=== PATIENT | female | born 1990 | race Caucasian/White ===

== ENCOUNTER 2017-02-04 06:00 | Inpatient (IN) | payer OTHER ==
[2017-02-04] MEDS ORDERED: EPSOM SALT 454 GM TP PRN (06:29)
[2017-02-04] MEDS ORDERED: TERBUTALINE SULFATE 1 MG/ML VIAL IV PRN (06:29)
[2017-02-04] MEDS ORDERED: OLIVE OIL 118 ML BTL MISC PRN (06:29)
[2017-02-04] MEDS ORDERED: OXYTOCIN/RINGERS LACTATE 1,000 ML IV PRN (06:29)
[2017-02-04] MEDS ORDERED: LR 1,000 ML IV PRN (06:29)
[2017-02-04 06:58] LABS: % IMMATURE GRANULYOCYTES 0.4 % (0.0-1.1); ABSOLUTE IMMATURE GRANULOCYTES 0.05 10^3/uL (0.00-0.10); ADD DIFF? NO; ADD MORPH? NO; ADD SCAN? NO; ATYPICAL LYMPHOCYTE FLAG 0 (0-99); FRAGMENT RBC FLAG 0 (0-99); HEMOGLOBIN 13.2 g/dL (12.6-16.3); LEFT SHIFT FLG 0 (0-99); LIPEMIA HEMOLYSIS FLAG 90 (0-99); MEAN CELL HEMOGLOBIN 32.7 pg (27.9-34.1); MEAN CELL HEMOGLOBIN CONCENTR. 34.7 g/dL (32.4-36.7); MEAN CELL VOLUME 94.1 fL (81.5-99.8); MEAN PLATELET VOLUME 10.9 fL (8.7-11.7); PLATELET CLUMPS FLAG 0 (0-99); PLATELET COUNT 168 10^3/uL (150-400); RED BLOOD CELL COUNT 4.04 10^6/uL (4.18-5.33)
[2017-02-04] MEDS ORDERED: LR 500 ML IV PRN (07:05)
[2017-02-04] MEDS ORDERED: OXYTOCIN/RINGERS LACTATE 500 ML IV SCH (07:30)
--- NOTE | 2017-02-04 09:55 | GHP ---
[f rep st] HISTORY AND PHYSICAL DATE OF ADMISSION: 02/04/2017 REASON FOR ADMISSION: The patient here for induction on 02/05/2016, on the Obstetric Service. HISTORY: Upon admission the patient is a 26-year-old, G1, P0, at 39 weeks and 2 days, with an estimated due date of 02/09/2017, established by last menstrual period of May 05, with first-trimester ultrasounds consistent with dates. The patient is here for an elective induction, due to decreased movement and term gestation. The patient had decreased movement on February 03, and was evaluated at [facility]. She had a biophysical profile of 8/8, with normal fluid and an NST that was reactive. However, there was 1 late deceleration. The patient had a Aranda catheter placed in anticipation of induction and her cervix was 1-2 cm. The patient presents this morning for induction with Pitocin. The Aranda catheter caused cramping on the night prior to admission. However, this decreased and the patient was able to sleep. The patient's bag of water is intact and the patient did have bloody show after the insertion of the Aranda and slight amount of bloody show this morning. The patient has had better movement than yesterday. She is not having any contractions this morning. care with [facility] since early 1st trimester. The patient had an unplanned and found she was with an IUD in place. The IUD was removed on July 05, at which time the patient was also given a RhoGAM for precautions. The patient found that she had conceived on the day her mother actually with ovarian cancer. The patient's was colored by mourning for her mother's and she has seen our therapist at [facility]. Ultrasound at 19 weeks revealed estimated weight in the 21st percentile. The patient had a followup ultrasound in 3rd trimester, at which time the estimated weight was the 61st percentile with normal fluid. The patient had an elevated 1-hour Glucola and a 3-hour GTT was normal. The patient had, had anemia and been on iron. LABORATORIES: The patient's blood type is B negative with negative antibody screen, noted prior to RhoGAM injections. The patient had RhoGAM on July 05, after the IUD was removed and also proactively on November 17, 2016. RPR is nonreactive. Rubella immune. Hepatitis B surface antigen is negative. Initial hematocrit was 38%, which decreased to 36% and the patient was taking iron therapy. On recheck it had dropped to 35% and the patient was continuing on iron. TSH in the was 2.4. The patient is immune to varicella and has negative hepatitis C. Urinalysis and culture negative. Pap smear negative gonorrhea and chlamydia negative. The 1-hour Glucola was elevated, with a 3- hour GTT that was normal. MSAFP was done and was this was negative. The patient had Innatal screening and this was negative. GBS culture was negative. 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 The patient also was felt to have abnormal thyroid testing at age 12, but the current check was normal. The patient had depression at age 10, when brother was diagnosed with a brain tumor. But this was found to be benign and the patient did not need medication. PAST SURGICAL HISTORY: Odontectomy in 2012. ALLERGIES: The patient has no known drug allergies. CURRENT MEDICATIONS: Only vitamins and iron. SOCIAL HISTORY: The patient is lives with her [place]. The patient is a nonsmoker, no alcohol or drug use. The patient works as an software quality engineer. PHYSICAL EXAMINATION: GENERAL: Upon admission, the patient is a well developed , obese white female, in no physical distress, but anxious. VITAL SIGNS: The patient has normal vital signs and is afebrile. See nursing documentation for full details. The patient's weight is 226 pounds. heart tone monitoring revealed a category 2 tracing with good variability and accelerations but variable decelerations noted randomly. Quick recovery. Contractions only infrequent on the continuous monitoring. PELVIC EXAM: Performed, Aranda catheter is removed. Cervix was 3-4 cm dilated, 80% effaced, at -2 station. Bag of todd intact. EXTREMITIES: Are nontender. Mild edema noted. ASSESSMENT: Intrauterine at 39 weeks and 2 days, with elective induction. Aranda catheter removed and good cervical ripening. Now on Pitocin for induction. We will plan artificial rupture of membranes in a had a couple hours if not spontaneous beforehand. The patient will have an epidural when desired. Social history of mother's demise in May 2016, from ovarian cancer. Rh negative. Full GBS negative. PLAN: We will increase Pitocin and perform AROM when necessary. /[id number]/MODL MTDD
--- NOTE | 2017-02-04 14:12 | OBPROG ---
OBG Labor Progress Note Assessment/Plan: Assessment: IUP at 39w2d, induction on pit Plan: AROM clear GBS - cont pitocin 02/04/17 14:07 Subjective: Pt doing fine. really not uncomfortable. Objective: 02/04/17 06:40 Patient ABO/Rh B NEGATIVE 02/04/17 06:40 - SVE Dilation (cm): 3 Effacement (%): 90 Station: -2 Hernandez Current Contraction Pattern: Irregular FHR (bpm): 140 FHR Pattern Variability: Moderate FHR Category: 1 Membranes: AROM Amniotic Fluid Color: Clear - Procedures Non-surgical Procedures: Amniotomy Oxytocin Orders Assessment - Pre-Induction/Augmentation Assessment Gestational Age: 39 week(s) and 2 day(s) ICD10 Worksheet Patient Problems: Problems Problem Status Onset Elective induction of labor planned Acute
[2017-02-04] MEDS ORDERED: AMMONIA AROMATIC 1 EACH AMP IH ONE (16:16)
[2017-02-04] MEDS ORDERED: OLIVE OIL 118 ML BTL ONE (16:16)
[2017-02-04] MEDS ORDERED: LIDOCAINE 1% 300 MG/30 ML SDV ONE (16:16)
[2017-02-04] MEDS ORDERED: TERBUTALINE SULFATE 1 MG/ML VIAL ONE (16:17)
[2017-02-04] MEDS ORDERED: MISOPROSTOL 200 MCG TAB ONE (16:18)
[2017-02-04] MEDS ORDERED: fentaNYL 2MCG/ML/BUP 0.1% RTU 100 ML BAG EP ONE (17:11)
[2017-02-04] MEDS ORDERED: PHENYLEPHRINE HCL 100 MCG/ML SYR ONE (17:11)
[2017-02-04] MEDS ORDERED: BUPIVACAINE 0.25% 30 ML SDV ONE (17:11)
[2017-02-04] MEDS ORDERED: fentaNYL 100 MCG/2 ML INJ ONE (17:12)
--- NOTE | 2017-02-04 18:24 | PREANESOB ---
Obstetric Pre-Anesthesia Info - General Info Proposed Procedure: Labor and delivery with pitocin. : 1 Para: 0 WBD: 39 - Info Status: Full Term Monitors: External FHR Baseline (bpm): 140 FHR Pattern: Reassuring - Labor Status Cervical Dilation per last OB SVE: 4 Station per last OB SVE: -2 Pitocin: In Use Indications for Labor Analgesia: Induction of Labor, Pain Control Labor Epidural: Proposed Anesthesia ROS: Prior general anesthesia. Allergies/Adverse Reactions: Allergy/AdvReac Type Severity Reaction Status Date / Time hydromorphone [From Dilaudid] Allergy Vomiting Verified 02/04/17 16:36 Home Medications: Medication Instructions Recorded Iron 1 tab PO DAILY 02/04/17 1 tab PO DAILY 02/04/17 Visit Medications: Generic Name Dose Route Start Last Admin Trade Name Freq PRN Reason Stop Dose Admin Lactated Ringer's 1,000 mls @ 0 mls/hr 02/04/17 06:29 Lr IV 08/03/17 06:28 PRN PRN SEE PROTOCOL CONDITIONS Protocol Per Protocol Oxytocin/Lactated Ringer's 1,000 mls @ 150 mls/hr 02/04/17 06:29 Pitocin 20 Units/Lr (Premix) IV PRN PRN Post- bleeding Lactated Ringer's 500 mls @ 500 mls/hr 02/04/17 07:05 Lr IV PRN PRN Maternal Hypotension Oxytocin/Lactated Ringer's 500 mls @ 0 mls/hr 02/04/17 07:30 02/04/17 08:00 Pitocin 30 Units/Lr (Premix) IV 08/03/17 07:29 1 mls CONT WINSOME Administration Protocol Per Protocol Ibuprofen 600 mg 02/04/17 06:29 Motrin PO 08/03/17 06:28 Q6HRS PRN post , inflammation Magnesium Sulfate 454 gm 02/04/17 06:29 Epsom Salt TP 08/03/17 06:28 Q1H PRN perineal discomfort Highland Oil 118 ml 02/04/17 06:29 Sweet Oil MISC 08/03/17 06:28 ONCE PRN preneal massage Terbutaline Sulfate 0.25 mg 02/04/17 06:29 Brethine IV 08/03/17 06:28 ONCE PRN Tachysystole Discontinued Medications Generic Name Dose Route Start Last Admin Trade Name Freq PRN Reason Stop Dose Admin Ammonia (Aromatic Spirit) Confirm 02/04/17 16:16 Ammonia Aromatic Administered 02/04/17 16:17 Dose 1 each IH .STK-MED ONE Bupivacaine HCl Confirm 02/04/17 17:11 Sensorcaine 0.25% Sdv Administered 02/04/17 17:12 Dose 30 ml .ROUTE .STK-MED ONE Fentanyl Confirm 02/04/17 17:12 Sublimaze Administered 02/04/17 17:13 Dose 100 mcg .ROUTE .STK-MED ONE Fentanyl/Bupivacaine HCl Confirm 02/04/17 17:11 Fentanyl/Bupivacaine/Ns 2 Mcg/Ml 0.1% (Premix Administered 02/04/17 17:12 Dose 100 ml EP .STK-MED ONE Lidocaine HCl Confirm 02/04/17 16:16 Lidocaine Hcl 1% Administered 02/04/17 16:17 Dose 300 mg .ROUTE .STK-MED ONE Misoprostol Confirm 02/04/17 16:18 Cytotec Administered 02/04/17 16:19 Dose 1,000 mcg .ROUTE .STK-MED ONE Highland Oil Confirm 02/04/17 16:16 Sweet Oil Administered 02/04/17 16:17 Dose 118 ml .ROUTE .STK-MED ONE Phenylephrine HCl Confirm 02/04/17 17:11 Neosynephrine Administered 02/04/17 17:12 Dose 1,000 mcg .ROUTE .STK-MED ONE Terbutaline Sulfate Confirm 02/04/17 16:17 Brethine Administered 02/04/17 16:18 Dose 1 mg .ROUTE .STK-MED ONE - Anesthesia History Response to Local Anesthetics: Normal Anesthesia & Operative History: No Prior Problems Family Anesthesia History: Negative - Social History Substance Use/Abuse: Denies - Focused Exam Blood Pressure: 138/84 Heart Rate: 72 Height/Weight (Nursing): Height 167.64 cm Weight 97.069 kg Physical Exam: Within normal limits. ASA Status: II Labs: 02/04/17 06:40 Patient ABO/Rh B NEGATIVE 02/04/17 06:40 - Plan Anesthetic Plan: CSE Consent Signed and on Chart: Yes Patient/Guardian Understands and Agrees to Plan: Yes Urgent/Emergent Case: Trinidad lara completed preop but documented later for safe timely pt care
[2017-02-04] MEDS ORDERED: PHENYLEPHRINE HCL 100 MCG/ML SYR IVP PRN (18:28)
[2017-02-04] MEDS ORDERED: ONDANSETRON 4 MG/2 ML VIAL IVP PRN (18:28)
--- NOTE | 2017-02-04 18:28 | POSTANESTH ---
Post Anesthetic Evaluation Cardiovascular Status: Normal, Stable Respiratory Status: Normal, Stable, Similar to Pre-op Cond. Level of Consciousness/Mental Status: Can Participate in Eval, Alert and Oriented Pain Control: Adequate, Prn Tx Ordered Nausea/Vomiting Control: Adequate, Prn Tx Ordered Complications Possibly Related to Anesthesia: None Noted
[2017-02-04] MEDS ORDERED: fentaNYL 2MCG/ML/BUP 0.1% RTU 100 ML EP SCH (18:30)
[2017-02-04] MEDS ORDERED: LR 500 ML IV SCH (18:30)
--- NOTE | 2017-02-04 18:33 | OBPROG ---
OBG Labor Progress Note Assessment/Plan: Assessment: IUP at 39w2d, induction on pit little change - now with TEREZA, IUPC placed Plan: AROM clear - 1400 GBS - cont pitocin 02/04/17 14:07 02/04/17 18:30 Subjective: Pt doing well now, very comf with TEREZA. ok with IUPC Objective: 02/04/17 06:40 Patient ABO/Rh B NEGATIVE 02/04/17 06:40 Temp Pulse Resp BP Pulse Ox 72 138/84 H 02/04/17 18:27 02/04/17 18:27 - SVE Dilation (cm): 4 Effacement (%): 90 Station: 0 Hernandez Current Contraction Pattern: Regular (q 3 min on 24 mu/min pit) FHR (bpm): 140 FHR Pattern Variability: Moderate FHR Category: 2 (variable decels occas) Membranes: AROM Amniotic Fluid Color: Clear - Procedures Non-surgical Procedures: Amniotomy, IUPC (IUPC placed now without probs) Oxytocin Orders Assessment - Pre-Induction/Augmentation Assessment Gestational Age: 39 week(s) and 2 day(s) ICD10 Worksheet Patient Problems: Problems Problem Status Onset Elective induction of labor planned Acute
[2017-02-04] MEDS ORDERED: RANITIDINE HCL 150 MG/10 ML UDCUP PO SCH (22:15)
--- NOTE | 2017-02-04 22:16 | OBPROG ---
OBG Labor Progress Note Assessment/Plan: Assessment: IUP at 39w2d, induction on pit IUPC - borderline adequacy Plan: AROM clear - 1400 GBS - cont pitocin 02/04/17 14:07 02/04/17 18:30 02/04/17 22:13 Subjective: doing fine with TEREZA - just felt some low pressure and pushed button Objective: 02/04/17 06:40 Patient ABO/Rh B NEGATIVE 02/04/17 06:40 Temp Pulse Resp BP Pulse Ox 72 138/84 H 02/04/17 18:27 02/04/17 18:27 - SVE Dilation (cm): 5 Effacement (%): 90 Station: 0 Hernandez Current Contraction Pattern: Regular (q 3 min on 28 mu/min pit) FHR (bpm): 130 FHR Pattern Variability: Moderate FHR Category: 1 Membranes: AROM Amniotic Fluid Color: Clear - Procedures Non-surgical Procedures: Amniotomy, IUPC (IUPC placed now without probs) Oxytocin Orders Assessment - Pre-Induction/Augmentation Assessment Gestational Age: 39 week(s) and 2 day(s) ICD10 Worksheet Patient Problems: Problems Problem Status Onset Elective induction of labor planned Acute
[2017-02-04] MEDS: FAMOTIDINE 20 MG TAB PO SCH (22:46)
[2017-02-05] MEDS ORDERED: ACETAMINOPHEN 325 MG TAB PO PRN (01:49)
--- NOTE | 2017-02-05 01:54 | OBDEL ---
Info Type: Vaginal GBS+: No Indications for Delivery: Elective Vaginal Delivery - Labor and Delivery Onset of Contractions Date: 02/04/17 Onset of Contractions Time: 14:00 Onset of Contractions Type: Induced Rupture of Membranes Date: 02/04/17 Rupture of Membranes Time: 14:00 Rupture of Membranes Type: Artificial Amniotic Fluid Color: Clear Dilation Complete Date: 02/05/17 Dilation Complete Time: 00:20 Placenta Delivery Date: 02/05/17 Placenta Delivery Time: 01:22 Total Hours of Labor: 11 Non-surgical Procedures: Amniotomy, IUPC (IUPC placed now without probs) Laceration: 1st Degree (right labial) Repair: Other (Specify) (none needed) Vaginal Sponge Count Correct: Yes Vaginal Needle Count Correct: Yes Vaginal Sweep Performed: Yes EBL: 400 Delivery Events: Nuchal Cord (x3 loose and reduced, long cord) - Medications Labor Augmentation/Induction Methods Used: Pitocin, Aranda Bulb Labor Augmentation/Induction Indication: Elective Data Hernandez Delivery Date: 02/05/17 Delivery Time: 01:13 BALJIT: 02/09/17 Gestational Age: 39 week(s) and 3 day(s) Sex of Infant: Female (Angeli Miles) Score (1 Min): 8 Score (5 Min): 9 ICD10 Worksheet Patient Problems: Problems Problem Status Onset (spontaneous vaginal delivery) Acute
--- NOTE | 2017-02-05 02:01 | OBGCSDC ---
General Delivery Information - General Info : 1 Para: 1 Delivery Physician/CNM: Alicia Robles Admission Date: 02/04/17 Labs: Patient ABO/Rh B NEGATIVE 02/04/17 06:40 Hct 38.0 % (38.0-47.0) 02/04/17 06:40 Vaginal - Diagnosis Labor: Induced Presentation at Delivery: Vertex Rupture of Membranes Type: Artificial Amniotic Fluid Color: Clear Laceration: 1st Degree (right labial) Repair: Other (Specify) (none needed) Delivery Events: Nuchal Cord (x3 loose and reduced, long cord) - Operations/Procedures Non-surgical Procedures: Amniotomy, IUPC (IUPC placed now without probs) L&D Analgesia/Anesthesia Type: Epidural - Hospital Course Antepartum: conceived with IUD and had +upt on day mom of ovarian cancer. EFW 21 % on 20wk u/s, follow-up at 30 wks showed 61% EFW decreased FM on day prior to induction - u/s with BPP of /8 Intrapartum: jade placed for induction, pitocin and AROM, TEREZA then IUPC placed due to little cx change. complete at 00:20 - 45 min pushing - Delivery Type: Vaginal Non-surgical Procedures: Amniotomy, IUPC (IUPC placed now without probs) EBL: 400 Data Hernandez Delivery Date: 02/05/17 Delivery Time: 01:13 BALJIT: 02/09/17 Gestational Age: 39 week(s) and 3 day(s) Sex of Infant: Female (Angeli Miles) Score (1 Min): 8 Score (5 Min): 9 Discharge Information - Discharge Information Discharge Medications: Vitamins Instruction/Follow Up: Four Weeks (with therapist), Six Weeks (with Travis)
[2017-02-05] MEDS: IBUPROFEN 600 MG TAB PO PRN ×4 (03:15→22:43)
[2017-02-05] MEDS: FAMOTIDINE 20 MG TAB PO SCH ×3 (09:29→22:43)
--- NOTE | 2017-02-05 10:11 | OBPP ---
Progress Note Assessment/Plan: Assessment: nipples intact denies pain or tenderness to nipples well pain well managed voiding without difficulty ff@u scant rubra lochia Plan:expectant management pp day 1 02/05/17 10:09 Subjective: Doing well denies difficulties Objective: 02/04/17 06:40 Patient ABO/Rh B NEGATIVE 02/05/17 02:45 Temp Pulse Resp BP Pulse Ox 36.3 C 58 L 16 112/63 95 02/05/17 08:00 02/05/17 08:00 02/05/17 08:00 02/05/17 08:00 02/05/17 08:00 Uterine Position/Fundal Height: At Umbilicus Uterine Tone: Firm Physical Exam - Physical Exam General Appearance: WD/WN, alert, no apparent distress Abdomen: other (ff@u) Extremities: normal range of motion, Kathryn's sign (negative bilaterally) DTR- Lower Extremities: Knee (R): 1+, Knee (L): 1+ Skin: normal color, warm/dry Neuro/Psych: no motor/sensory deficits, alert, normal mood/affect, oriented x 3
[2017-02-05] MEDS: DOCUSATE SODIUM 100 MG CAP PO PRN (22:43)
[2017-02-06] MEDS: IBUPROFEN 600 MG TAB PO PRN ×4 (04:28→22:14)
--- NOTE | 2017-02-06 09:54 | OBPP ---
Progress Note Assessment/Plan: Assessment: 1) s/p PPD # 1 - pt is stable 2) Rh negative - RhoGam eval Plan: Continue routine pp care Plan for d/c home in am 02/0702/06/17 09:52 02/06/17 09:53 Subjective: Pt seen and examined. Doing well with no complaints. Minimal cramping. Moderate lochia. Pt is OOB, britton regular diet, voiding without difficulty and passing flatus. No BM yet. BF without difficulty. Objective: 02/04/17 06:40 Patient ABO/Rh B NEGATIVE 02/05/17 02:45 Temp Pulse Resp BP Pulse Ox 36.6 C 62 16 86/52 L 97 02/06/17 08:00 02/06/17 08:00 02/06/17 08:00 02/06/17 08:00 02/06/17 08:00 Uterine Position/Fundal Height: Umbilicus -2 Uterine Tone: Firm Physical Exam - Physical Exam General Appearance: WD/WN, alert, no apparent distress Respiratory: lungs clear, normal breath sounds Cardiac/Chest: regular rate, rhythm Abdomen: normal bowel sounds, non-tender, soft, flatus (+) Extremities: non-tender, normal inspection Skin: normal color, warm/dry Neuro/Psych: alert, normal mood/affect, oriented x 3
[2017-02-06] MEDS: FAMOTIDINE 20 MG TAB PO SCH ×2 (10:09→20:26)
[2017-02-06] MEDS: DOCUSATE SODIUM 100 MG CAP PO PRN (20:26)
[2017-02-07] MEDS: IBUPROFEN 600 MG TAB PO PRN (05:23)
[2017-02-07] MEDS: FAMOTIDINE 20 MG TAB PO SCH (09:11)
[2017-02-07 10:00] VITALS: BP 132/82; PULSE 68; RESP 18; TEMP 98.2; O2SAT 97
--- NOTE | 2017-02-07 10:57 | OBPP ---
Progress Note Assessment/Plan: Assessment: nipples intact denies pain or tenderness to nipples well pain well managed voiding without difficulty ff@u scant rubra lochia perineum well approximated Plan:discharge to home with instructions fu 3 d for bp check, 4 weeks and 6 weeks fu pp, pain well managed, depression, ss infection, bleeding pattern, pelvic rest, rest, contraception, walking for 5-6 weeks 02/05/17 10:09 02/07/17 10:54 Subjective: Doing well denies difficulties. Pain well managed. well. Objective: 02/04/17 06:40 Patient ABO/Rh B NEGATIVE 02/05/17 02:45 Temp Pulse Resp BP Pulse Ox 36.8 C 68 18 132/82 H 97 02/07/17 10:00 02/07/17 10:00 02/07/17 10:00 02/07/17 10:00 02/07/17 10:00 Uterine Position/Fundal Height: At Umbilicus Uterine Tone: Firm Physical Exam - Physical Exam General Appearance: WD/WN, alert, no apparent distress Abdomen: other (ff@u/ scant rubra lochia ) Extremities: normal range of motion, Kathryn's sign (negative bilaterally) DTR- Lower Extremities: Knee (R): 1+, Knee (L): 1+ (no clonus) Skin: normal color, warm/dry Neuro/Psych: no motor/sensory deficits, alert, normal mood/affect, oriented x 3
--- NOTE | 2017-02-07 11:00 | OBGCSDC ---
General Delivery Information - General Info : 1 Para: 2 Delivery Physician/CNM: Nena Gross Labs: Patient ABO/Rh B NEGATIVE 02/05/17 02:45 Hct 38.0 % (38.0-47.0) 02/04/17 06:40 Vaginal - Diagnosis Labor: Induced Presentation at Delivery: Vertex Rupture of Membranes Type: Artificial Amniotic Fluid Color: Clear Laceration: 1st Degree (right labial) Repair: Other (Specify) (none needed) Delivery Events: Nuchal Cord (x3 loose and reduced, long cord) - Operations/Procedures Non-surgical Procedures: Amniotomy, IUPC (IUPC placed now without probs) L&D Analgesia/Anesthesia Type: Epidural - Hospital Course Antepartum: Decreased movement, liliana wnl decided on elective IOL Intrapartum: IOL, jade bulb, pitocin, arom vaginal delivery 2 degree repair : well, pain well managed, home today pp day 2 - Delivery Non-surgical Procedures: Amniotomy, IUPC (IUPC placed now without probs) L&D Analgesia/Anesthesia Type: Epidural Brick Data Hernandez Delivery Date: 02/05/17 Delivery Time: 01:13 BALJIT: 02/09/17 Gestational Age: 39 week(s) and 5 day(s) Sex of : Female Weight (gm): 3024 g Score (1 Min): 8 Score (5 Min): 9
== END 2017-02-07 12:30 | disposition home or self-care (01) | DRG 775 ==
LOC: FLD 06:21 → FOB 02-05 04:00
PROVIDERS: ADMIT Obstetrics & Gynecology; ATTEND Obstetrics & Gynecology
PROC: 10E0XZZ Delivery of Products of Conception, External Approach (ICD-10-PCS; principal; 2017-02-05)
PROC: 0HQ9XZZ Repair Perineum Skin, External Approach (ICD-10-PCS; principal; 2017-02-05)
PROC: 0U7C7DZ Dilation of Cervix with Intraluminal Device, Via Natural or Artificial Opening (ICD-10-PCS; 2017-02-05)
PROC: 10907ZC Drainage of Amniotic Fluid, Therapeutic from Products of Conception, Via Natural or Artificial Opening (ICD-10-PCS; 2017-02-05)
PROC: 3E033VJ Introduction of Other Hormone into Peripheral Vein, Percutaneous Approach (ICD-10-PCS; 2017-02-05)
DX: O36.8130 Decreased fetal movements, third trimester, not applicable or unspecified (principal); O69.89X0 Labor and delivery complicated by other cord complications, not applicable or unspecified; O70.0 First degree perineal laceration during delivery; Z67.21 Type B blood, Rh negative; R76.11 Nonspecific reaction to tuberculin skin test without active tuberculosis; Z3A.39 39 weeks gestation of pregnancy; Z37.0 Single live birth
CPT/HCPCS: J2370; J2405; J2590; J3010; J3105